=== PATIENT | female | born 1975 | race Two or more races ===

== ENCOUNTER 2019-09-21 14:50 | Emergency (ER) | payer SELFPAY ==
[~2019-09-21] VITALS: Ht 167.6 cm; Wt 77.0 kg
[2019-09-21 14:55] VITALS: BP 162/72
[2019-09-21] MEDS ORDERED: KETOROLAC 60MG/2ML VIAL IM ONE (16:30)
== END 2019-09-21 18:46 | disposition home or self-care (01) ==
LOC: ER 14:50
DX: R51 Headache (principal); V43.62XA Car passenger injured in collision with other type car in traffic accident, initial encounter; Y93.89 Activity, other specified; Y92.488 Other paved roadways as the place of occurrence of the external cause
CPT/HCPCS: 70450; 96372; 99284; J1885